=== PATIENT | female | born 1975 | race Caucasian/White ===

== ENCOUNTER 2018-04-11 13:06 | Emergency (ER) | payer MEDICARE, OTHER, MEDICAID ==
[2018-04-11 14:06] VITALS: BP 114/79
[2018-04-11] MEDS ORDERED: Lidocaine/Epineph/Tetraca SOL* (LET solution) 4 ML BTL TOPICAL ONE (15:26)
--- NOTE | 2018-04-11 15:29 | UC ---
Skin Complaint HPI - HPI Summary HPI Summary: Patient nicked her right calf about 6 months ago while shaving. She states she developed a blood blister about the size of a dime at that time. Since then it has gotten smaller but has not healed over. The blood blister will ooze intermittently. She is currently visiting from out of town and her dog bumped into her leg with his collar. The blister was unroofed and she is actively bleeding and has not been able to get it to stop. No fever. No history of bleeding problems. Up to date tetanus. - History of Current Complaint Chief Complaint: [facility] Time Seen by Provider: 04/11/18 15:09 Stated Complaint: BLOOD BLISTER ON LEG Hx Obtained From: Patient Hx Last Menstrual Period: 04/03/18 Onset/Duration: Sudden Onset, Lasting Weeks - MONTHS, Still Present Onset Severity: Mild Current Severity: Mild Pain Intensity: 3 Pain Scale Used: 0-10 Numeric Location: Discrete - RIGHT CALF Aggravating Factor(s): Nothing Alleviating Factor(s): Nothing - Allergy/Home Medications Allergies/Adverse Reactions: Allergies Allergy/AdvReac Type Severity Reaction Status Date / Time Penicillins Allergy Severe Rash Verified 04/11/18 13:43 NSAIDS (Non-Steroidal Allergy Mild See Comment Verified 04/11/18 13:45 Anti-Inflamma latex Allergy Rash Verified 04/11/18 13:45 Home Medications: Home Medications Albuterol HFA INHALER* [Ventolin HFA Inhaler*] 2 puff INH Q4HR PRN 04/11/18 [ History Confirmed 04/11/18] Chlorhexidine Gluconate 118 ml TOPICAL WEEKLY 04/11/18 [History Confirmed ] Clindamycin 1% TOPICAL(NF) [Cleocin-T 1% TOPICAL(NF)] 1 applic TOPICAL DAILY 08/28 [History Confirmed 04/11/18] EPINEPHrine [Epinephrine] 0.3 mg IM DAILY PRN 04/11/18 [History Confirmed ] Fluticasone NASAL SPRAY 50MCG* [Flonase NASAL SPRAY 50MCG*] 2 spray .ROUTE DAILY PRN 04/11/18 [History Confirmed 04/11/18] Loratadine 10 mg PO BEDTIME 04/11/18 [History Confirmed 04/11/18] Montelukast Sodium 10 mg PO BEDTIME 04/11/18 [History Confirmed 04/11/18] Naratriptan HCl 2.5 mg PO DAILY PRN 04/11/18 [History Confirmed 04/11/18] Potassium Chloride [Klor-Con Sprinkle] 10 meq PO DAILY 04/11/18 [History Confirmed 04/11/18] Prazosin HCl 2 mg PO BEDTIME 04/11/18 [History Confirmed 04/11/18] SUMAtriptan SQ* [Imitrex SQ*] 04/11/18 [History] Trazodone HCl 50 mg PO BEDTIME 04/11/18 [History Confirmed 04/11/18] Venlafaxine ER (NF) [Effexor ER (NF)] 150 mg PO DAILY 04/11/18 [History Confirmed 04/11/18] Vitamin B Complex [Super B-50 Complex] 1 tab PO DAILY 04/11/18 [History Confirmed 04/11/18] Review of Systems Constitutional: Negative Skin: Other - BLEEDING WOUND Respiratory: Negative Cardiovascular: Negative Gastrointestinal: Negative All Other Systems Reviewed And Are Negative: Yes PMH/Surg Hx/FS Hx/Imm Hx Respiratory History: Asthma GI/ History: Kidney Stones Neurological History: Migraine Psychological History: Post Traumatic Stress Disorder - Surgical History Surgical History: Yes Surgery Procedure, Year, and Place: pre-cancerous cells removed from cervix - Family History Known Family History: Negative: Hypertension - Social History Alcohol Use: None Substance Use Type: None Smoking Status (MU): Never Smoked Tobacco Physical Exam Triage Information Reviewed: Yes Appearance: Well-Appearing, No Pain Distress, Well-Nourished Vital Signs: Initial Vital Signs Temp 99.8 F 04/11/18 13:57 Pulse 87 04/11/18 13:57 Resp 16 04/11/18 13:57 BP 114/79 04/11/18 13:57 Pulse Ox 100 04/11/18 13:57 Vital Signs Reviewed: Yes Eyes: Positive: Conjunctiva Clear ENT: Positive: Hearing grossly normal Neck: Positive: Supple Respiratory: Positive: No respiratory distress, No accessory muscle use Cardiovascular: Positive: Pulses Normal Abdomen Description: Positive: Soft Musculoskeletal: Positive: ROM Intact, No Edema Neurological: Positive: Alert Psychological: Positive: Age Appropriate Behavior Skin: Positive: Other - 5MM ACTIVELY BLEEDING SHALLOW WOUND RIGHT PROXIMAL CALF Course/Dx - Course Course Of Treatment: TOPICAL LET APPLIED FOR LOCAL ANESTHESIA. CAUTERY SUCCESSFULLY USED TO STOP BLEEDING. GELFOAM APPLIED AND WOUND DRESSED. FOLLOW- UP WITH DERM BACK HOME. - Diagnoses Provider Diagnoses: CHRONIC SKIN WOUND - RIGHT CALF Discharge - Sign-Out/Discharge Documenting (check all that apply): Patient Departure All imaging exams completed and their final reports reviewed: No Studies - Discharge Plan Condition: Stable Disposition: HOME Referrals: No Primary Care Phys,NOPCP [Primary Care Provider] - Additional Instructions: YOUR BLEEDING SKIN LESION WAS CAUTERIZED TODAY. GELFOAM APPLIED. IT SHOULD FALL OFF IN A FEW DAYS. SEEK FOLLOW-UP IF YOU DEVELOP SPREADING REDNESS OF THE SKIN, PURULENT DRAINAGE, FEVER, INCREASED PAIN OR ANY OTHER CONCERNING SYMPTOMS. FOLLOW-UP WITH A BUSINESS SOLUTION ANALYST WHEN YOU GET BACK HOME NEXT WEEK FOR FURTHER EVALUATION OF THIS CHRONIC WOUND. - Billing Disposition and Condition Condition: STABLE Disposition: Home
[2018-04-11] MEDS ORDERED: Gelfoam 12-7 ADSORBABL SPONGE* 1 EA SPONGE TOPICAL ONE (16:03)
== END 2018-04-11 16:30 | disposition home or self-care (01) ==
LOC: UCEAST 13:06
DX: S80.821A Blister (nonthermal), right lower leg, initial encounter (principal); X58.XXXA Exposure to other specified factors, initial encounter; Y93.9 Activity, unspecified; Y92.9 Unspecified place or not applicable; J45.909 Unspecified asthma, uncomplicated; G43.909 Migraine, unspecified, not intractable, without status migrainosus; F43.10 Post-traumatic stress disorder, unspecified; Z79.899 Other long term (current) drug therapy; Z88.0 Allergy status to penicillin; Z91.040 Latex allergy status; Z88.6 Allergy status to analgesic agent
CPT/HCPCS: 17250; 99202; A9270-GY; G0463